=== PATIENT | male | born 1960 | race Caucasian/White ===

== ENCOUNTER 2025-06-09 09:46 | Emergency (ER) | payer BC ==
[~2025-06-09] VITALS: Ht 188 cm; Wt 142.9 kg
[2025-06-09] MEDS ORDERED: Dexamethasone Sod Phos 10 MG/ML 1ML VIAL PO ONE (10:15)
[2025-06-09] MEDS ORDERED: Lidocaine 4% 1 Patch TOP ONE (10:20)
[2025-06-09] MEDS ORDERED: OXYC5 PO ×2 (11:27→11:49)
[2025-06-09] MEDS ORDERED: TIZANIDINE HCL2 M1 PO (12:27)
[2025-06-09] MEDS ORDERED: OXAYDO5 M1 PO (12:27)
[2025-06-09] MEDS ORDERED: PRED20 PO (12:27)
[2025-06-09] MEDS ORDERED: GABA300 PO (12:39)
== END 2025-06-09 13:03 | disposition home or self-care (01) ==
LOC: ER 09:46
DX: M54.16 Radiculopathy, lumbar region (principal)
CPT/HCPCS: 99283; A9270; J1100